=== PATIENT | female | born 1965 | race Caucasian/White ===

== ENCOUNTER 2016-08-27 19:45 | Emergency (ER) | payer BC, OTHER ==
[2016-08-27] MEDS ORDERED: Sodium Chloride 0.9% 10 ML Syringe FLUSH PRN (20:06)
--- NOTE | 2016-08-27 20:13 | EDM.PDOC ---
ED HPI GENERAL MEDICAL PROBLEM - General Chief Complaint: General Stated Complaint: shortness of breath Time Seen by Provider: 08/27/16 20:00 Source of Information: Reports: Patient History Limitations: Reports: No Limitations - History of Present Illness INITIAL COMMENTS - FREE TEXT/NARRATIVE: Patient is a 51-year-old was brought in by her sister for evaluation patient states that today she was at work and felt exhausted maybe heat exhaustion so she went to the nurse they gave her a pack couple of ice packs and send her on her way at this time patient states that she also lost her breath and having a low-grade temperature she also complains of chest pain right-sided radiating to the flank she also complained right lower quadrant tenderness she states is been going on for a couple days but todays when it hurt her worse Duration: Hour(s): Location: Reports: Chest, Abdomen Quality: Reports: Pressure Severity: Moderate Improves with: Reports: Cold Therapy Worsens with: Reports: None Context: Reports: Sick Contact Associated Symptoms: Reports: Nausea/Vomiting, Other (Diarrhea) Right Lower Headache Pain Score (Numeric/FACES): 3 - Related Data Allergies Allergy/AdvReac Type Severity Reaction Status Date / Time No Known Allergies Allergy Verified 08/27/16 20:04 Home Meds: Home Meds Estrogen,Con/M-Progest Acet [Prempro 0.3 MG-1.5 MG] 1 tab PO DAILY PRN 03/16/15 [History] Past Medical History HEENT History: Reports: None. Denies: Allergic Rhinitis, Glaucoma, Hard of Hearing, Impaired Vision, Macular Degeneration Cardiovascular History: Reports: Heart Murmur Respiratory History: Reports: None. Denies: Asthma, COPD, PE Gastrointestinal History: Reports: None. Denies: Chronic Constipation, Chronic Diarrhea, Gastritis, GERD, Hepatitis, Helicobacter Pylori, Pancreatitis Genitourinary History: Reports: None. Denies: Chronic Renal Insuffiency, Renal Calculus, STD, Urinary Incontinence [employer] History: Reports: Dysfunctional Uterine Bleeding, Endometrial Ablation, Fibroids, Spontaneous Musculoskeletal History: Reports: None. Denies: Arthritis, Back Pain, Chronic, Gout, Neck Pain, Chronic, Osteoarthritis, RA, SLE Neurological History: Reports: None. Denies: Concussion, CVA, Headaches, Chronic, Head Trauma, Migraines, Neuropathy, Peripheral, Seizure, TIA, Vertigo Psychiatric History: Reports: None. Denies: Abuse, Victim of, Anxiety, Depression, Suicidal Ideation Endocrine/Metabolic History: Reports: None. Denies: Diabetes, Type I, Diabetes , Type II, Hypothyroidism, IDDM Hematologic History: Reports: None. Denies: Anemia, B12 Deficiency, Blood Transfusion(s), Iron Deficiency Immunologic History: Reports: None. Denies: AIDS, HIV, SLE Oncologic (Cancer) History: Reports: None Dermatologic History: Reports: None. Denies: Eczema, Psoriasis - Infectious Disease History Infectious Disease History: Reports: Chicken Pox - Past Surgical History HEENT Surgical History: Reports: Oral Surgery GI Surgical History: Reports: Hernia, Inguinal Female Surgical History: Reports: Tubal Ligation, Other (See Below) - Past Imaging History Past Imaging History: Reports: Mammogram (10/04/14) Social & Family History - Tobacco Use Smoking Status *Q: Never Smoker Second Hand Smoke Exposure: No - Caffeine Use Caffeine Use: Reports: None. Denies: Coffee, Energy Drinks, Soda, Tea - Alcohol Use Days Per Week of Alcohol Use: 6 (DWI x2 initially in 1995 and then in 2008 M. in no history of abuse or treatment) Number of Drinks Per Day: 8 (Usually beer) Total Drinks Per Week: 48 - Recreational Drug Use Recreational Drug Use: No Drug Use in Last 12 Months: No - Living Situation & Occupation Living situation: Reports: , with Significant Other Occupation: Employed ED ROS GENERAL - Review of Systems Review Of Systems: See Below Constitutional: Reports: Fever, Chills, Diaphoresis HEENT: Reports: Glasses Respiratory: Reports: Shortness of Breath Cardiovascular: Reports: Chest Pain Endocrine: Reports: No Symptoms GI/Abdominal: Reports: Diarrhea, Vomiting Musculoskeletal: Reports: No Symptoms Skin: Reports: No Symptoms Neurological: Reports: No Symptoms Psychiatric: Reports: No Symptoms ED EXAM, GENERAL - Physical Exam Exam: See Below Exam Limited By: No Limitations General Appearance: Alert, WD/WN Ears: Normal External Exam, Normal Canal, Hearing Grossly Normal, Normal TMs Ear Exam: Bilateral Ear: Auricle Normal, Canal Normal, TM normal Nose: Normal Inspection, Normal Mucosa, No Blood Throat/Mouth: Normal Inspection, Normal Lips, Normal Teeth, Normal Gums, Normal Oropharynx, Normal Voice, No Airway Compromise Head: Atraumatic, Normocephalic Neck: Normal Inspection, Supple, Non-Tender, Full Range of Motion Respiratory/Chest: Lungs Clear, Normal Breath Sounds, Decreased Breath Sounds Cardiovascular: Regular Rate, Rhythm, Systolic Murmur GI/Abdominal: Normal Bowel Sounds, Soft, No Distention, No Abnormal Bruit, No Mass (Female) Exam: Deferred Rectal (Female) Exam: Deferred Psychiatric: Normal Affect, Normal Mood Lymphatic: No Adenopathy Course - Vital Signs Last Recorded V/S: Last Vital Signs Temp 100 F 08/27/16 19:56 Pulse 104 H 08/27/16 19:56 Resp 16 08/27/16 19:56 BP 135/91 H 08/27/16 19:56 Pulse Ox 99 08/27/16 19:56 - Orders/Labs/Meds Orders: Active Orders 24 hr Category Date Time Status CXR [Chest 2V] [CR] Stat Exams 08/27/16 20:06 Ordered Sodium Chloride 0.9% @ 150 MLS/HR (1000ml) Med 08/27/16 20:15 Ordered Sodium Chloride 0.9% [Normal Saline] 1,000 ml IV ASDIRECTED Sodium Chloride 0.9% [Saline Flush] Med 08/27/16 20:06 Ordered 10 ml FLUSH ASDIRECTED PRN Saline Lock Insert [OM.PC] Stat Oth 08/27/16 20:06 Ordered Medication Orders Sodium Chloride (Normal Saline) 1,000 mls @ 150 mls/hr IV ASDIRECTED JOSE Last Admin: 08/27/16 20:50 Dose: 150 mls/hr Sodium Chloride (Saline Flush) 10 ml FLUSH ASDIRECTED PRN PRN Reason: Keep Vein Open Labs: Laboratory Tests 08/27/16 08/27/16 08/27/16 Range/Units 20:06 20:06 20:37 WBC 8.7 (4.0-10.2) K/uL RBC 4.15 (3.77-5.09) M/uL Hgb 12.8 (11.7-15.5) g/dL Hct 37.3 (34.0-46.0) % MCV 89.9 (84.0-98.0) fL MCH 30.8 (28.2-33.3) pg MCHC 34.3 (31.7-36.0) g/dL RDW 12.9 (11.2-14.1) % Plt Count 222 (150-350) K/uL Neut % (Auto) 84.0 H (45.0-80.0) % Lymph % (Auto) 9.4 L (10.0-50.0) % [place] % (Auto) 5.4 (2.0-14.0) % Eos % (Auto) 0.7 (0.0-5.0) % Baso % (Auto) 0.5 (0.0-2.0) % Neut # (Auto) 7.29 H (1.40-7.00) K/uL Lymph # (Auto) 0.82 (0.50-3.50) K/uL [place] # (Auto) 0.47 (0.00-1.00) K/uL Eos # (Auto) 0.06 (0.00-0.50) K/uL Baso # (Auto) 0.04 (0.00-0.20) K/uL Sodium 137 (136-145) mmol/L Potassium 3.5 (3.5-5.1) mmol/L Chloride 103 (98-107) mmol/L Carbon Dioxide 22.4 (21.0-32.0) mmol/L BUN 12 (7-18) mg/dL Creatinine 0.72 (0.51-1.17) mg/dL Est Cr Clr Drug Dosing 84.86 mL/min Estimated GFR (MDRD) > 60 mL/min Glucose 102 (74-106) mg/dL Calcium 8.8 (8.5-10.1) mg/dL Specimen Type Urincc Urine Color Light yellow Urine Appearance Clear Urine pH 5.5 (5.0-9.0) Ur Specific [place] <= 1.005 (1.005-1.030) Urine Protein Negative (NEGATIVE) mg/dL Urine Glucose (UA) Negative (NEGATIVE) mg/dL Urine Ketones Negative (NEGATIVE) mg/dL Urine Occult Blood Trace-lysed H (NEGATIVE) Urine Nitrite Negative (NEGATIVE) Urine Bilirubin Negative (NEGATIVE) Urine Urobilinogen 0.2 (0.2-1.0) E.U./dL Ur Leukocyte Esterase Negative (NEGATIVE) Urine RBC 0-5 /HPF Urine WBC 0-5 /HPF Ur Epithelial Cells Rare /LPF Urine Bacteria Rare (NONE TO FEW) /HPF Meds: Medications Generic Name Dose Route Start Last Admin Trade Name Freq PRN Reason Stop Dose Admin Sodium Chloride 1,000 mls @ 150 mls/hr 08/27/16 20:15 08/27/16 20:50 Normal Saline IV 150 mls/hr ASDIRECTED JOSE Administration Sodium Chloride 10 ml 08/27/16 20:06 Saline Flush FLUSH ASDIRECTED PRN Keep Vein Open Departure - Departure Time of Disposition: 22:00 Disposition: Home, Self-Care 01 Preliminary Cause of *Q: Cardiac Arrest Condition: Fair Clinical Impression: Dehydration, mild - Discharge Information Forms: ED Department Discharge Care Plan Goals: Patient will be given 1 L of fluids then sent home she is to take Gatorade at home or water follow-up if symptoms continue - My Orders Last 24 Hours: My Active Orders 08/27/16 20:06 CXR [Chest 2V] [CR] Stat Sodium Chloride 0.9% [Saline Flush] 10 ml FLUSH ASDIRECTED PRN Saline Lock Insert [OM.PC] Stat 08/27/16 20:15 Sodium Chloride 0.9% @ 150 MLS/HR (1000ml) Sodium Chloride 0.9% [Normal Saline] 1,000 ml IV ASDIRECTED - Assessment/Plan Last 24 Hours: My Active Orders 08/27/16 20:06 CXR [Chest 2V] [CR] Stat Sodium Chloride 0.9% [Saline Flush] 10 ml FLUSH ASDIRECTED PRN Saline Lock Insert [OM.PC] Stat 08/27/16 20:15 Sodium Chloride 0.9% @ 150 MLS/HR (1000ml) Sodium Chloride 0.9% [Normal Saline] 1,000 ml IV ASDIRECTED
[2016-08-27] MEDS ORDERED: Sodium Chloride 0.9% 1,000 ML IV SCH (20:15)
[2016-08-27 20:38] LABS: CHLORIDE,CL 103 mmol/L (98-107); SODIUM,NA 137 mmol/L (136-145)
[2016-08-28 08:10] VITALS: BP 131/80
== END 2016-08-27 22:15 | disposition home or self-care (01) ==
LOC: LL.ED 19:45
DX: E86.0 Dehydration (principal)
CPT/HCPCS: 36415; 71020; 80048; 81001; 85025; 96360; 99285; J7030

== ENCOUNTER 2020-02-23 15:00 | Observation (INO) | payer BC ==
--- NOTE | 2020-02-23 15:15 | EDM.PDOC ---
ED HPI GENERAL MEDICAL PROBLEM - General Chief Complaint: General Stated Complaint: R arm pain Time Seen by Provider: 02/23/20 15:10 Source of Information: Reports: Patient, EMS, EMS Notes Reviewed, Family (Son, Sharath. Yolanda), Old Records ([facility] chart/EMR) History Limitations: Reports: No Limitations - History of Present Illness INITIAL COMMENTS - FREE TEXT/NARRATIVE: The patient was brought to the emergency room via ambulance with EMT accompaniment with 4 baby aspirin chew and swallow given prior to arrival to this facility. Note that the patient had some nonspecific dyspnea at about 11 AM this morning with sudden onset moderate 78/10 left-sided chest pressure with radiation to the left shoulder and left arm, including paresthesias, mild dyspnea, mild nausea, mild dizziness and mild to moderate diaphoresis. The patient was standing at the time of onset of symptoms with no history of fall or injury. Note that patient was given O2 at [facility] with this continued by the power distribution engineer in route to this facility. Chest pain was essentially resolved at time of arrival to this facility with symptoms lasting about 15 minutes and significantly improved with O2 therapy as above. The patient denies any heart flutter, orthostasis, orthopnea, decreased exercise tolerance, or any other anginal-type symptoms. No recent history of abdominal pain, heartburn, emesis, diarrhea, melena, gross hematochezia, or any food intolerance, including fatty foods, etc. with normal bowel movement yesterday. She denies any gross hematuria, colic, or other UTI symptoms. The patient also denies any recent fever, cough, wheezing, known exposure to infection, etc. with the patient currently compliant with CDC guidelines for COVID-19. Onset: Today, Sudden Onset Date: 02/23/20 Onset Time: 14:00 Duration: Resolved Prior to Arrival Location: Reports: Chest, Upper Extremity, Left, Radiates to (As above). Denies: Abdomen, Back, Pelvis, Upper Extremity, Right Quality: Reports: Pressure Severity: Moderate Improves with: Reports: Other (Oxygen therapy as above) Worsens with: Reports: None Associated Symptoms: Reports: Chest Pain, Diaphoresis, Nausea/Vomiting (No emesis), Shortness of Breath. 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 Denies: Allergic Rhinitis, Glaucoma, Hard of Hearing, Macular Degeneration Other HEENT History: Patient wears glasses. Cardiovascular History: Reports: Heart Murmur, Other (See Below). Denies: Afib, Aneurysm, Angina, Arrhythmia, Blood Clots/VTE/DVT, CAD, Cardiomyopathy, Heart Failure, High Cholesterol, Hypertension, [place], PVD, Syncope Other Cardiovascular History: History of intermittent probable functional heart murmur. Respiratory History: Reports: None, Intubation, Previous. Denies: Asthma, Bronchitis, Recurrent, COPD, Intubation, Difficult, PE, Pneumonia, Recurrent, Pneumothorax, Pulmonary Fibrosis Gastrointestinal History: Reports: None. Denies: Celiac Disease, Cholelithiasis, Chronic Constipation, Chronic Diarrhea, Colon Polyp, Diverticulosis, Fatty Liver, Fecal Incontinence, Gastritis, GERD, GI Bleed, Hepatitis, Helicobacter Pylori, Inflammatory Bowel Disease, Irritable Bowel Syndrome, Jaundice, Pancreatitis, PUD Genitourinary History: Reports: None. 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 Denies: Endometriosis : 3 Para: 2 LMP (Approximate): Other (See Below) Other TECHNICAL MANAGER History: Full term without complications during pregnancies or deliveries. Dysfunctional uterine bleeding with uterine fibroids requiring endometrial ablation as below with no menses since that time. First trimester SAB with no procedures required. Multiple benign bilateral ovarian cysts. Musculoskeletal History: Reports: Arthritis, Fracture, Osteoarthritis, Other (See Below). Denies: Back Pain, Chronic, Gout, Neck Pain, Chronic, RA, SLE Other Musculoskeletal History: Chip fracture of the left proximal humeral head on 03/26/2015 with no surgeries required. Neurological History: Reports: None. Denies: Cerebral Aneurysms, Concussion, CVA, Headaches, Chronic, Head Trauma, Migraines, MS, Neuropathy, Peripheral, Parkinson's, Seizure, TIA, Vertigo Psychiatric History: Reports: None. Denies: Abuse, Victim of, Anxiety, Depression, Panic Attack, Psych Hospitalization(s), PTSD, Suicide Attempt, Suicidal Ideation Endocrine/Metabolic History: Reports: Obesity/BMI 30+. Denies: Diabetes, Gestational, Diabetes, Type I, Diabetes, Type II, Diabetes Mellitus, Type 3c, Hypothyroidism, IDDM Hematologic History: Reports: None. Denies: Anemia, B12 Deficiency, Blood Transfusion(s), Iron Deficiency Immunologic History: Reports: None. Denies: AIDS, HIV, SLE Oncologic (Cancer) History: Reports: None. Denies: Basal Cell Carcinoma, Breast, Cervix, Colon, Hodgkin's Lymphoma, Leukemia, Lung, Lymphoma, Malignant Melanoma, Metastatic, Non-Hodgkin's Lymphoma, Ovarian, Squamous Cell Carcinoma, Uterine Dermatologic History: Reports: None. Denies: Eczema, Psoriasis - Infectious Disease History Infectious Disease History: Reports: Chicken Pox. Denies: C-Difficile, Measles, Meningitis, Mononucleosis, MRSA, Mumps, Novel Coronavirus, Pertussis (Whooping Cough), Rheumatic Fever, Rubella, Scarlet Fever, Shingles, TB, VRE - Past Surgical History Head Surgeries/Procedures: Reports: None, Craniotomy HEENT Surgical History: Reports: Oral Surgery, Other (See Below). Denies: Adenoidectomy, Cataract Surgery, Eye Surgery, Laser Surgery, LASIK, Myringotomy w Tube(s), Naso-Sinus Surgery, Tonsillectomy Other HEENT Surgeries/Procedures: Del[place] teeth extraction x4 at age 18 with additional multiple teeth extractions. Cardiovascular Surgical History: Reports: None. Denies: Varicose Respiratory Surgical History: Reports: None. Denies: Thoracentesis GI Surgical History: Reports: Hernia, Inguinal, Other (See Below). Denies: Appendectomy, Cholecystectomy, Colonoscopy, EGD, Hernia, Abdominal, Hernia Repair/Other, Polypectomy Other GI Surgeries/Procedures: Bilateral inguinal hernia repair at age 10. Female Surgical History: Reports: Tubal Ligation, Other (See Below). Denies: Section, D&C, Hysterectomy, Salpingo-Oophorectomy Other Female Surgeries/Procedures: Bilateral tubal ligation December 2012. Endometrial laser ablation in December 2012 with secondary surgical menopause. Endocrine Surgical History: Reports: None. Denies: Thyroid Biopsy Neurological Surgical History: Reports: None. Denies: C-Spine, Discectomy, Intracranial, Laminectomy, Lumbar Spine, Spinal Fusion, Thoracic Spine, Vertebroplasty Musculoskeletal Surgical History: Reports: None. Denies: Arthroscopic Procedure, Carpal Tunnel, Ganglion Cyst, Joint Replacement, ORIF, Shoulder Surgery Oncologic Surgical History: Reports: None Dermatological Surgical History: Reports: None - Past Imaging History Past Imaging History: Reports: CAT Scan (CT scan of the abdomen pelvis with contrast on 07/04/2018.), Mammogram (Last on 06/27/2018.), Ultrasound (Pelvic ultrasound on 06/27/2018, 12/05/2016, and 11/20/2012.) Social & Family History - Family History HEENT: Reports: None. Denies: Glaucoma, Macular Degeneration, Retinal Detachment Cardiac: Reports: Hypertension, Other (See Below). Denies: Afib, Aneurysm, Arrhythmia, Blood Clots/VTE/DVT, CAD, Heart Failure, Heart Murmur, Heart Valve Replacement, High Cholesterol, [place], PVD/COD, Syncope Other Cardiac Family History: Father with hypertension. Respiratory: Reports: COPD, Sleep Apnea, Other (See Below). Denies: Asthma, PE, Pneumothorax Other Respiratory Family Hisory: Father with history of COPD and tobacco use. Brother with sleep apnea currently using CPAP. GI: Reports: Cholelithiasis, Other (See Below). Denies: Bowel Obstruction, Celiac Disease, Chronic Constipation, Chronic Diarrhea, Colon Polyps, Diverticulosis, GERD, GI bleed, Hepatitis, Irritable Bowel Syndrome, Pancreatitis, PUD Other GI Family History: Sister with cholelithiasis. : Reports: Renal Disease/Insufficiency, Other (See Below). Denies: Dialysis, Renal Calculus Other Family History: Son with acute renal failure at about age 19 likely secondary to dehydration with no dialysis, etc. required. OBGYN: Reports: Endometriosis, Other (See Below). Denies: Dysfunctional uterine bleeding, Fibroids, Recurrent Spontaneous Other OBGYN Family History: Sister with hysterectomy for unknown reason at age 28, however she did have endometriosis with another sister also with endometriosis. Musculoskeletal: Reports: Arthritis, Osteoarthritis, Other (See Below). Denies: Gout, RA, SLE Other Musculoskeletal Family History: Maternal aunt with osteoarthritis. Neurological: Reports: Alzheimers Disease, Dementia, Other (See Below). Denies: Cerebral Aneurysms, CVA, Migraines, MS, Parkinson's, Seizure, TIA Other Neurological Family History: Paternal grandfather with organic brain syndrome/fatal Alzheimer's disease in his 70s. Psychiatric: Reports: ADD, ADHD, Anxiety, Depression, Other (See Below). Denies: Abuse, Victim of, Psych Hospitalization(s), PTSD, Suicide Attempt Other Psychiatric Family History: Son with ADHD, anxiety depression disorder, and previous suicidal ideation, including mostly gesture reactions, without true attempt or psychiatric hospitalization. Endocrine/Metabolic: Reports: Diabetes, type II, Other (See Below). Denies: Diabetes, Gestational, Diabetes, Type I, Diabetes Mellitus, Type 3c, Hypothyroidism, IDDM Other Endocrine/Metabolic Family History: AODM in brother and sister. Hematologic: Reports: None. Denies: Anemia, SLE Immunologic: Reports: None. Denies: AIDS, HIV, SLE Dermatologic: Reports: None. Denies: Eczema, Psoriasis Oncologic: Reports: Other (See Below). Denies: Breast, Colon, Lymphoma, Non-Hodgkin's Lymphoma, Ovarian, Skin, Uterine Other Oncologic Family History: Brother with testicular cancer at age 19. - Tobacco Use Tobacco Use Status *Q: Never Tobacco User Tobacco Use Within Last Twelve Months: No Used Tobacco, but Quit: No Smoking Cessation Information Provided To Patient: No Second Hand Smoke Exposure: No Second Hand Smoke Education Provided: No - Caffeine Use Caffeine Use: Reports: Soda (1 soda per month.). Denies: Coffee, Energy Drinks, Tea - Alcohol Use Alcohol Use History: Yes Days Per Week of Alcohol Use: 4 Number of Drinks Per Day: 8 Number of Drinks Per Day Comment: Usually beer. DWI x2 initially 1995 and then in 2008. No history of alcohol abuse with treatment. Total Drinks Per Week: 32 Date of Last Drink: 02/22/20 Alcohol Use in Last Twelve Months: Yes Alcohol Use Frequency: Binges - Recreational Drug Use Recreational Drug Use: No Drug Use in Last 12 Months: No Recreational Drug Type: Denies: Amphetamines (Speed), Cocaine, Heroin, Inhalants (Glues, Solvents, Aerosols), LSD (Acid), Marijuana/Hashish, Methamphetamine, Morphine, Oxycodone - Living Situation & Occupation Living situation: Reports: (2005, 2 children), Alone Occupation: Employed ([employer]. 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 ED EXAM, GENERAL - Physical Exam Exam: See Below Exam Limited By: No Limitations General Appearance: Alert, WD/WN, No Apparent Distress, Anxious (Mild) Eye Exam: Bilateral Eye: EOMI, Normal Inspection (No nystagmus or vertigo. Patient is wearing glasses.), PERRL Ears: Normal External Exam, Normal Canal, Hearing Grossly Normal, Normal TMs Nose: Normal Inspection, Normal Mucosa, No Blood Throat/Mouth: Normal Inspection, Normal Lips, Normal Teeth (Occasional missing teeth with no acute infection), Normal Gums, Normal Oropharynx, Normal Voice, No Airway Compromise. No: Dysphagia, Perioral Cyanosis Head: Atraumatic, Normocephalic. No: Facial Swelling, Facial Tenderness, Sinus Tenderness Neck: Normal Inspection, Supple, Non-Tender, Full Range of Motion. No: Carotid Bruit, Lymphadenopathy (L), Lymphadenopathy (R), Thyromegaly Respiratory/Chest: No Respiratory Distress, Lungs Clear, Normal Breath Sounds, No Accessory Muscle Use, Chest Non-Tender. No: Pleural Rub, Retractions Cardiovascular: Normal Peripheral Pulses, Regular Rate, Rhythm, No Edema, No Gallop, No JVD, No Murmur, No Rub. No: Gallop/S3, Gallop/S4, Friction Rub Peripheral Pulses: 2+: Radial (L), Radial (R), Dorsalis Pedis (L), Dorsalis Pedis (R) GI/Abdominal: Normal Bowel Sounds, Soft, Non-Tender, No Organomegaly, No Distention, No Abnormal Bruit, No Mass, Pelvis Stable, Other (Obese). No: Guarding (Female) Exam: Deferred Rectal (Female) Exam: Deferred Back Exam: Normal Inspection, Full Range of Motion. No: CVA Tenderness (L), CVA Tenderness (R), Muscle Spasm Extremities: Normal Inspection, Normal Range of Motion, Non-Tender, No Pedal Edema, Normal Capillary Refill. No: Mayda's Sign Neurological: Alert, Oriented, CN II-XII Intact, Normal Cognition, Normal Gait, Normal Reflexes (Negative Babinski's), No Motor/Sensory Deficits Psychiatric: Anxious (Mild), Depressed Mood (Borderline) Skin Exam: Warm, Dry, Intact, Normal Color, No Rash, Stud(s) (Auricular). No: Diaphoretic, Ecchymosis, Petechiae, Wound/Incision Lymphatic: No Adenopathy #1 Interpretation EKG Date: 02/23/20 Time: 15:10 Rhythm: NSR (Mild sinus arrhythmia) Rate (Beats/Min): 87 Elizabeth: Normal P-Wave: Present QRS: Normal (0.09 seconds with somewhat low voltage and mild repolarization changes) ST-T: Normal (T wave inversion in leads III and V1) QT: Normal AL/PQ Interval: 0.14 seconds representing a borderline short AL interval with no delta waves noted. Extreme poor R wave progression in the anterior leads. Comparison: NA - No Prior EKG EKG Interpretation Comments: 1. No acute ischemic changes 2. Borderline short AL interval 3. Repolarization changes Course - Vital Signs Last Recorded V/S: Last Vital Signs Temp 36.1 C 02/23/20 15:00 Pulse 87 02/23/20 15:36 Resp 19 02/23/20 15:16 BP 130/92 H 02/23/20 15:36 Pulse Ox 100 02/23/20 15:16 Vital Signs - 24 hr 02/23/20 02/23/20 02/23/20 15:00 15:16 15:36 Temperature [ 36.1 C Temporal] Pulse, 87 Peripheral Pulse, 85 86 Peripheral [ Pulse Oximetry] Respiratory 16 19 Rate Blood Pressure 130/92 H Blood Pressure 151/99 H 139/83 [Right Upper Arm] O2 Sat by Pulse 100 100 Oximetry - Orders/Labs/Meds Orders: Active Orders 24 hr Category Date Time Status Cardiac Monitoring [RC] . DIRECTED Care 02/23/20 15:16 Active EKG Documentation Completion [RC] ASDIRECTED Care 02/23/20 15:10 Active Oxygen Therapy, ED [RC] PRN Care 02/23/20 15:16 Active Peripheral IV Care [RC] . DIRECTED Care 02/23/20 15:16 Active Pulse Oximetry [RC] CONTINUOUS Care 02/23/20 15:16 Active Up With Assistance [RC] PFP Care 02/23/20 15:16 Active Vital Signs [RC] PFP Care 02/23/20 15:16 Active Nothing per Oral Now Diet [DIET] Diet 02/23/20 Breakfast Active Chest 1V Frontal [CR] Stat Exams 02/23/20 15:16 Ordered Sodium Chloride 0.9% [Saline Flush] Med 02/23/20 15:15 Active 10 ml FLUSH ASDIRECTED PRN Obtain Past Medical Record [OM.PC] Urgent Oth 02/23/20 15:16 Active Peripheral IV Insertion Adult [OM.PC] Stat Oth 02/23/20 15:16 Ordered Resuscitation Status Stat Resus Stat 02/23/20 15:15 Ordered Medication Orders Sodium Chloride (Saline Flush) 10 ml FLUSH ASDIRECTED PRN PRN Reason: Keep Vein Open Last Admin: 02/23/20 15:24 Dose: 10 ml Documented by: DIONNA Labs: Laboratory Tests 02/23/20 02/23/20 02/23/20 Range/Units 15:16 15:16 15:16 WBC 8.7 (4.0-10.2) K/uL RBC 3.89 (3.77-5.09) M/uL Hgb 12.3 (11.7-15.5) g/dL Hct 35.9 (34.0-46.0) % MCV 92.3 (84.0-98.0) fL MCH 31.6 (28.2-33.3) pg MCHC 34.3 (31.7-36.0) g/dL RDW 13.2 (11.2-14.1) % Plt Count 258 (150-350) K/uL Neut % (Auto) 44.3 L (45.0-80.0) % Lymph % (Auto) 47.2 (10.0-50.0) % [place] % (Auto) 6.8 (2.0-14.0) % Eos % (Auto) 1.1 (0.0-5.0) % Baso % (Auto) 0.6 (0.0-2.0) % Neut # (Auto) 3.86 (1.40-7.00) K/uL Lymph # (Auto) 4.11 H (0.50-3.50) K/uL [place] # (Auto) 0.59 (0.00-1.00) K/uL Eos # (Auto) 0.10 (0.00-0.50) K/uL Baso # (Auto) 0.05 (0.00-0.20) K/uL PT 10.3 (9.5-12.0) SEC INR 1.0 APTT 26.5 (24.5-32.8) SEC D-Dimer, Quantitative < 100 (0-400) ng/mL Sodium (136-145) mmol/L Potassium (3.5-5.1) mmol/L Chloride (98-107) mmol/L Carbon Dioxide (21.0-32.0) mmol/L BUN (7-18) mg/dL Creatinine (0.51-1.17) mg/dL Est Cr Clr Drug Dosing Estimated GFR (MDRD) mL/min Glucose (74-106) mg/dL Lactic Acid (0.4-2.0) mmol/L Uric Acid (2.6-7.2) mg/dL Calcium (8.5-10.1) mg/dL Magnesium (1.8-2.4) mg/dL Total Bilirubin (0.2-1.0) mg/dL AST (15-37) U/L ALT (12-78) U/L Alkaline Phosphatase (46-116) IU/L Creatine Kinase (26-308) U/L Creatine Kinase Index (0.0-2.5) % CK-MB (CK-2) (0.00-3.60) ng/mL Troponin I (0.000-0.056) ng/mL NT-Pro-B Natriuret Pep (0-125) pg/mL Total Protein (6.4-8.2) g/dL Albumin (3.4-5.0) g/dL TSH, Ultra Sensitive (0.358-3.740) mIU/mL 02/23/20 02/23/20 Range/Units 15:16 15:16 WBC (4.0-10.2) K/uL RBC (3.77-5.09) M/uL Hgb (11.7-15.5) g/dL Hct (34.0-46.0) % MCV (84.0-98.0) fL MCH (28.2-33.3) pg MCHC (31.7-36.0) g/dL RDW (11.2-14.1) % Plt Count (150-350) K/uL Neut % (Auto) (45.0-80.0) % Lymph % (Auto) (10.0-50.0) % [place] % (Auto) (2.0-14.0) % Eos % (Auto) (0.0-5.0) % Baso % (Auto) (0.0-2.0) % Neut # (Auto) (1.40-7.00) K/uL Lymph # (Auto) (0.50-3.50) K/uL [place] # (Auto) (0.00-1.00) K/uL Eos # (Auto) (0.00-0.50) K/uL Baso # (Auto) (0.00-0.20) K/uL PT (9.5-12.0) SEC INR APTT (24.5-32.8) SEC D-Dimer, Quantitative (0-400) ng/mL Sodium 139 (136-145) mmol/L Potassium 3.6 (3.5-5.1) mmol/L Chloride 104 (98-107) mmol/L Carbon Dioxide 24.1 (21.0-32.0) mmol/L BUN 15 (7-18) mg/dL Creatinine 0.79 (0.51-1.17) mg/dL Est Cr Clr Drug Dosing TNP Estimated GFR (MDRD) > 60 mL/min Glucose 91 (74-106) mg/dL Lactic Acid 0.9 (0.4-2.0) mmol/L Uric Acid 6.2 (2.6-7.2) mg/dL Calcium 9.1 (8.5-10.1) mg/dL Magnesium 2.0 (1.8-2.4) mg/dL Total Bilirubin 0.4 (0.2-1.0) mg/dL AST 23 (15-37) U/L ALT 31 (12-78) U/L Alkaline Phosphatase 56 (46-116) IU/L Creatine Kinase 196 (26-308) U/L Creatine Kinase Index 2.2 (0.0-2.5) % CK-MB (CK-2) 4.40 H* (0.00-3.60) ng/mL Troponin I 0.000 (0.000-0.056) ng/mL NT-Pro-B Natriuret Pep 76 (0-125) pg/mL Total Protein 7.3 (6.4-8.2) g/dL Albumin 4.1 (3.4-5.0) g/dL TSH, Ultra Sensitive 2.059 (0.358-3.740) mIU/mL Meds: Medications Generic Name Dose Route Start Last Admin Trade Name Freq PRN Reason Stop Dose Admin Sodium Chloride 10 ml 02/23/20 15:15 02/23/20 15:24 Saline Flush FLUSH 10 ml ASDIRECTED PRN Administration Keep Vein Open Discontinued Medications Generic Name Dose Route Start Last Admin Trade Name Freq PRN Reason Stop Dose Admin Famotidine 40 mg 02/23/20 15:15 02/23/20 15:21 Pepcid IVPUSH 02/23/20 15:16 40 mg ONETIME ONE Administration Metoprolol Tartrate 2.5 mg 02/23/20 15:32 02/23/20 15:36 Lopressor IVPUSH 02/23/20 15:33 2.5 mg ONETIME ONE Administration Ticagrelor 180 mg 02/23/20 15:15 02/23/20 15:21 Brilinta PO 02/23/20 15:16 180 mg ONETIME ONE Administration - Radiology Interpretation Free Text/Narrative:: court monitor showed normal sinus rhythm with heart rate in the 70s to 90s with no ectopy or arrhythmia. Chest x-ray, portable, showed mild prominence of the proximal aortic arch without evidence of aneurysm, cardiomegaly, CHF, pulmonary infiltrates, pneumothorax, etc. Borderline pulmonary obstructive disease noted. Departure - Departure Time of Disposition: 16:15 Disposition: Refer to Observation Condition: Good Clinical Impression: Chest pain, Elevated blood pressure reading, Osteoarthritis, Obesity (BMI 30-39.9) - Discharge Information *PRESCRIPTION DRUG MONITORING PROGRAM REVIEWED*: Not Applicable *COPY OF PRESCRIPTION DRUG MONITORING REPORT IN PATIENT DILSHAD: Not Applicable Referrals: Shana Rednon PA [Primary Care Provider] - Forms: ED Department Discharge Care Plan Goals: See plan Sepsis Event Note (ED) - Focused Exam Vital Signs: Vital Signs Temp Pulse Pulse Resp BP BP Pulse Ox 02/23/20 15:36 87 130/92 H 02/23/20 15:16 86 19 139/83 100 02/23/20 15:00 36.1 C 85 16 151/99 H 100 - Problem List & Annotations (1) Chest pain SNOMED Code(s): 30228105 Code(s): R07.9 - CHEST PAIN, UNSPECIFIED Status: Acute Priority: High Onset Date: 02/23/20 Annotation/Comment:: Chest pain protocol initiated immediately upon patient's arrival to the emergency room. Note that ASA was given prior to arrival by the power distribution engineer. Chest pain completely resolved prior to arrival and did not occur during her emergency room care. Initiate standard rule out [place] orders. Cardiology consultation depending on her clinical course. Cardiolite stress test in this facility should be conducted next week with 50% maximum exercise restriction, no climbing, fall precautions, etc. until her cardiac status has been determined. Note that high-dose IV Pepcid was given as GI prophylaxis. Mild CK-MB elevation however other cardiac enzymes were normal, including D-dimer, troponin I, etc. Qualifiers: Chest pain type: precordial pain Qualified Code(s): R07.2 - Precordial pain (2) Elevated blood pressure reading SNOMED Code(s): 43427207 Code(s): R03.0 - ELEVATED BLOOD-PRESSURE READING, W/O DIAGNOSIS OF HTN Status: Acute Priority: High Onset Date: 02/23/20 Annotation/Comment:: Note elevated blood pressures initially in the emergency room. Low-dose IV Lopressor was given for blood pressure control and asked cardiac prophylaxis. No previous history of hypertension. Continue to observe blood pressures closely both during this hospitalization and on an outpatient basis. (3) Obesity (BMI 30-39.9) SNOMED Code(s): 072996895, 996116586 Code(s): E66.9 - OBESITY, UNSPECIFIED Status: Chronic Priority: High Annotation/Comment:: Weight loss in moderation is advisable. Fasting lipid profile and glycosylated hemoglobin to be conducted in the a.m. (4) Osteoarthritis SNOMED Code(s): 942859975 Code(s): M19.90 - UNSPECIFIED OSTEOARTHRITIS, UNSPECIFIED SITE Status: Chronic Priority: Medium Annotation/Comment:: Stable by history. Qualifiers: Osteoarthritis location: multiple joints Osteoarthritis type: primary Qualified Code(s): M89.49 - Other hypertrophic osteoarthropathy, multiple sites - Problem List Review Problem List Initiated/Reviewed/Updated: Yes - My Orders Last 24 Hours: My Active Orders 02/23/20 Breakfast Nothing per Oral Now Diet [DIET] 02/23/20 15:10 EKG Documentation Completion [RC] ASDIRECTED 02/23/20 15:15 Sodium Chloride 0.9% [Saline Flush] 10 ml FLUSH ASDIRECTED PRN Resuscitation Status Stat 02/23/20 15:16 Cardiac Monitoring [RC] . DIRECTED Oxygen Therapy, ED [RC] PRN Peripheral IV Care [RC] . DIRECTED Pulse Oximetry [RC] CONTINUOUS Up With Assistance [RC] PFP Vital Signs [RC] PFP Chest 1V Frontal [CR] Stat Obtain Past Medical Record [OM.PC] Urgent Peripheral IV Insertion Adult [OM.PC] Stat - Assessment/Plan Last 24 Hours: My Active Orders 02/23/20 Breakfast Nothing per Oral Now Diet [DIET] 02/23/20 15:10 EKG Documentation Completion [RC] ASDIRECTED 02/23/20 15:15 Sodium Chloride 0.9% [Saline Flush] 10 ml FLUSH ASDIRECTED PRN Resuscitation Status Stat 02/23/20 15:16 Cardiac Monitoring [RC] . DIRECTED Oxygen Therapy, ED [RC] PRN Peripheral IV Care [RC] . DIRECTED Pulse Oximetry [RC] CONTINUOUS Up With Assistance [RC] PFP Vital Signs [RC] PFP Chest 1V Frontal [CR] Stat Obtain Past Medical Record [OM.PC] Urgent Peripheral IV Insertion Adult [OM.PC] Stat Assessment:: As above Plan: As above. Extensive precautions were given to the patient and her family, who are in agreement with the treatment plan. The patient's condition is stable enough for observation status and general supervision. Ngozi han physician assumes care in the a.m.
[2020-02-23] MEDS: Famotidine 20 MG/2 ML SDV IVPUSH ONE (15:21)
[2020-02-23] MEDS: Ticagrelor 90 MG Tab PO ONE (15:21)
[2020-02-23] MEDS: Sodium Chloride 0.9% 10 ML Syringe FLUSH PRN (15:24)
[2020-02-23] MEDS: Metoprolol Tartrate 5 MG/5 ML SDV IVPUSH ONE (15:36)
[2020-02-23 15:37] LABS: PTT,PARTIAL THROMBOPLSTIN TIME 26.5 SEC (24.5-32.8)
[2020-02-23 15:47] LABS: CHLORIDE,CL 104 mmol/L (98-107); SODIUM,NA 139 mmol/L (136-145)
[2020-02-23] MEDS ORDERED: Sodium Chloride 0.9% 10 ML Syringe FLUSH PRN (17:04)
[2020-02-23] MEDS ORDERED: Acetaminophen 325 MG Tab PO PRN (17:04)
[2020-02-23] MEDS ORDERED: Temazepam 15 MG Cap PO PRN (17:04)
[2020-02-23] MEDS: Metoprolol Succinate 25 MG Tab.ER PO SCH (17:49)
[2020-02-23] MEDS: Enoxaparin 60 MG/0.6 ML Syringe SUBCUT SCH (17:49)
[2020-02-23] MEDS ORDERED: FLU Vacc QS2020-21 36MOS UP/PF 60 MCG/0.5 ML Syringe IM ONE (19:30)
[2020-02-24 08:05] LABS: HEMOGLOBIN A1C 5.1 % (4.3-5.7)
[2020-02-24 08:24] LABS: CHLORIDE,CL 107 mmol/L (98-107); SODIUM,NA 142 mmol/L (136-145)
[2020-02-24 08:29] VITALS: BP 127/79; PULSE 58
--- NOTE | 2020-02-24 09:39 | PCM.DCSUM1 ---
Discharge Summary - Hospital Course HPI Initial Comments: Pt admitted after being seen in ER for chest pain Pt without pain currently Workup negative Diagnosis: Stroke: No - Discharge Data Discharge Date: 02/24/20 Discharge Disposition: Home, Self-Care 01 Condition: Good - Referral to Home Health Primary Care Physician: TOMASA Rodríguez - Discharge Diagnosis/Problem(s) (1) Chest pain SNOMED Code(s): 71094497 ICD Code: R07.9 - CHEST PAIN, UNSPECIFIED Status: Acute Priority: High Current Visit: No Onset Date: 02/23/20 Problem Details: Chest pain protocol initiated immediately upon patient's arrival to the emergency room. Note that ASA was given prior to arrival by the wireless sales manager. Chest pain completely resolved prior to arrival and did not occur during her emergency room care. Initiate standard rule out [place] orders. Cardiology consultation depending on her clinical course. Cardiolite stress test in this facility should be conducted next week with 50% maximum exercise restriction, no climbing, fall precautions, etc. until her cardiac status has been determined. Note that high-dose IV Pepcid was given as GI prophylaxis. Mild CK-MB elevation however other cardiac enzymes were normal, including D-dimer, troponin I, etc. Qualifiers: Chest pain type: precordial pain Qualified Code(s): R07.2 - Precordial pain - Patient Instructions Diet: Regular Diet as Tolerated Activity: As Tolerated Notify Provider of: Increased Pain - Discharge Plan *PRESCRIPTION DRUG MONITORING PROGRAM REVIEWED*: Not Applicable *COPY OF PRESCRIPTION DRUG MONITORING REPORT IN PATIENT DILSHAD: Not Applicable Home Medications: Home Meds Multivitamin [One-Daily Multi-Vitamin] 1 each PO DAILY 02/23/20 [History] Mv-Mn/C/Glutamin/Lysin/[id number] [Airborne Gummies] 1 each PO DAILY 02/23/20 [History] Naproxen Sodium [Aleve] 220 mg PO TID PRN 02/23/20 [History] Forms: ED Department Discharge Referrals: Shana Rendon PA [Primary Care Provider] - - Discharge Summary/Plan Comment DC Time >30 min.: No Discharge Summary/Plan Comment: To clinic to schedule cardiac stress test - General Info Date of Service: 02/24/20 Functional Status: Reports: Pain Controlled - Review of Systems General: Reports: No Symptoms HEENT: Reports: No Symptoms Pulmonary: Reports: No Symptoms Cardiovascular: Reports: No Symptoms Gastrointestinal: Reports: No Symptoms Musculoskeletal: Reports: No Symptoms - Patient Data Vitals - Most Recent: Last Vital Signs Temp 98.0 F 02/24/20 08:00 Pulse 58 L 02/24/20 08:00 Resp 14 02/24/20 08:00 BP 127/79 02/24/20 08:00 Pulse Ox 100 02/24/20 08:00 Weight - Most Recent: 197 lb 4.8 oz I&O - Last 24 hours: Intake & Output 02/23/20 02/24/20 02/24/20 18:59 02:59 10:59 Intake Total 510 Output Total 800 Balance -290 Lab Results - Last 24 hrs: Laboratory Results - last 24 hr 02/23/20 02/23/20 02/23/20 Range/Units 15:16 15:16 15:16 WBC 8.7 (4.0-10.2) K/uL RBC 3.89 (3.77-5.09) M/uL Hgb 12.3 (11.7-15.5) g/dL Hct 35.9 (34.0-46.0) % MCV 92.3 (84.0-98.0) fL MCH 31.6 (28.2-33.3) pg MCHC 34.3 (31.7-36.0) g/dL RDW 13.2 (11.2-14.1) % Plt Count 258 (150-350) K/uL Neut % (Auto) 44.3 L (45.0-80.0) % Lymph % (Auto) 47.2 (10.0-50.0) % [place] % (Auto) 6.8 (2.0-14.0) % Eos % (Auto) 1.1 (0.0-5.0) % Baso % (Auto) 0.6 (0.0-2.0) % Neut # (Auto) 3.86 (1.40-7.00) K/uL Lymph # (Auto) 4.11 H (0.50-3.50) K/uL [place] # (Auto) 0.59 (0.00-1.00) K/uL Eos # (Auto) 0.10 (0.00-0.50) K/uL Baso # (Auto) 0.05 (0.00-0.20) K/uL PT 10.3 (9.5-12.0) SEC INR 1.0 APTT 26.5 (24.5-32.8) SEC D-Dimer, Quantitative < 100 (0-400) ng/mL Sodium (136-145) mmol/L Potassium (3.5-5.1) mmol/L Chloride (98-107) mmol/L Carbon Dioxide (21.0-32.0) mmol/L BUN (7-18) mg/dL Creatinine (0.51-1.17) mg/dL Est Cr Clr Drug Dosing Estimated GFR (MDRD) mL/min Glucose (74-106) mg/dL Hemoglobin A1c (4.3-5.7) % Lactic Acid (0.4-2.0) mmol/L Uric Acid (2.6-7.2) mg/dL Calcium (8.5-10.1) mg/dL Magnesium (1.8-2.4) mg/dL Total Bilirubin (0.2-1.0) mg/dL AST (15-37) U/L ALT (12-78) U/L Alkaline Phosphatase (46-116) IU/L Creatine Kinase (26-308) U/L Creatine Kinase Index (0.0-2.5) % CK-MB (CK-2) (0.00-3.60) ng/mL Troponin I (0.000-0.056) ng/mL NT-Pro-B Natriuret Pep (0-125) pg/mL Total Protein (6.4-8.2) g/dL Albumin (3.4-5.0) g/dL Triglycerides (30-150) mg/dL Cholesterol (100-200) mg/dL LDL Cholesterol, Calc (0-100) mg/dL HDL Cholesterol (40-60) mg/dL TSH, Ultra Sensitive (0.358-3.740) mIU/mL 02/23/20 02/23/20 02/23/20 Range/Units 15:16 15:16 20:35 WBC (4.0-10.2) K/uL RBC (3.77-5.09) M/uL Hgb (11.7-15.5) g/dL Hct (34.0-46.0) % MCV (84.0-98.0) fL MCH (28.2-33.3) pg MCHC (31.7-36.0) g/dL RDW (11.2-14.1) % Plt Count (150-350) K/uL Neut % (Auto) (45.0-80.0) % Lymph % (Auto) (10.0-50.0) % [place] % (Auto) (2.0-14.0) % Eos % (Auto) (0.0-5.0) % Baso % (Auto) (0.0-2.0) % Neut # (Auto) (1.40-7.00) K/uL Lymph # (Auto) (0.50-3.50) K/uL [place] # (Auto) (0.00-1.00) K/uL Eos # (Auto) (0.00-0.50) K/uL Baso # (Auto) (0.00-0.20) K/uL PT (9.5-12.0) SEC INR APTT (24.5-32.8) SEC D-Dimer, Quantitative (0-400) ng/mL Sodium 139 (136-145) mmol/L Potassium 3.6 (3.5-5.1) mmol/L Chloride 104 (98-107) mmol/L Carbon Dioxide 24.1 (21.0-32.0) mmol/L BUN 15 (7-18) mg/dL Creatinine 0.79 (0.51-1.17) mg/dL Est Cr Clr Drug Dosing TNP Estimated GFR (MDRD) > 60 mL/min Glucose 91 (74-106) mg/dL Hemoglobin A1c (4.3-5.7) % Lactic Acid 0.9 (0.4-2.0) mmol/L Uric Acid 6.2 (2.6-7.2) mg/dL Calcium 9.1 (8.5-10.1) mg/dL Magnesium 2.0 (1.8-2.4) mg/dL Total Bilirubin 0.4 (0.2-1.0) mg/dL AST 23 (15-37) U/L ALT 31 (12-78) U/L Alkaline Phosphatase 56 (46-116) IU/L Creatine Kinase 196 213 (26-308) U/L Creatine Kinase Index 2.2 1.8 (0.0-2.5) % CK-MB (CK-2) 4.40 H* 3.90 H (0.00-3.60) ng/mL Troponin I 0.000 0.000 (0.000-0.056) ng/mL NT-Pro-B Natriuret Pep 76 (0-125) pg/mL Total Protein 7.3 (6.4-8.2) g/dL Albumin 4.1 (3.4-5.0) g/dL Triglycerides (30-150) mg/dL Cholesterol (100-200) mg/dL LDL Cholesterol, Calc (0-100) mg/dL HDL Cholesterol (40-60) mg/dL TSH, Ultra Sensitive 2.059 (0.358-3.740) mIU/mL 02/24/20 02/24/20 02/24/20 Range/Units 07:38 07:38 07:38 WBC 6.2 (4.0-10.2) K/uL RBC 3.90 (3.77-5.09) M/uL Hgb 12.0 (11.7-15.5) g/dL Hct 36.4 (34.0-46.0) % MCV 93.3 (84.0-98.0) fL MCH 30.8 (28.2-33.3) pg MCHC 33.0 (31.7-36.0) g/dL RDW 13.1 (11.2-14.1) % Plt Count 227 (150-350) K/uL Neut % (Auto) 39.6 L (45.0-80.0) % Lymph % (Auto) 48.5 (10.0-50.0) % [place] % (Auto) 8.8 (2.0-14.0) % Eos % (Auto) 2.6 (0.0-5.0) % Baso % (Auto) 0.5 (0.0-2.0) % Neut # (Auto) 2.44 (1.40-7.00) K/uL Lymph # (Auto) 2.99 (0.50-3.50) K/uL [place] # (Auto) 0.54 (0.00-1.00) K/uL Eos # (Auto) 0.16 (0.00-0.50) K/uL Baso # (Auto) 0.03 (0.00-0.20) K/uL PT (9.5-12.0) SEC INR APTT (24.5-32.8) SEC D-Dimer, Quantitative (0-400) ng/mL Sodium 142 (136-145) mmol/L Potassium 3.8 (3.5-5.1) mmol/L Chloride 107 (98-107) mmol/L Carbon Dioxide 24.6 (21.0-32.0) mmol/L BUN 15 (7-18) mg/dL Creatinine 0.84 (0.51-1.17) mg/dL Est Cr Clr Drug Dosing 68.09 Estimated GFR (MDRD) > 60 mL/min Glucose 90 (74-106) mg/dL Hemoglobin A1c 5.1 (4.3-5.7) % Lactic Acid (0.4-2.0) mmol/L Uric Acid (2.6-7.2) mg/dL Calcium 8.9 (8.5-10.1) mg/dL Magnesium (1.8-2.4) mg/dL Total Bilirubin 0.6 (0.2-1.0) mg/dL AST 20 (15-37) U/L ALT 31 (12-78) U/L Alkaline Phosphatase 44 L (46-116) IU/L Creatine Kinase 152 (26-308) U/L Creatine Kinase Index 1.7 (0.0-2.5) % CK-MB (CK-2) 2.60 (0.00-3.60) ng/mL Troponin I 0.000 (0.000-0.056) ng/mL NT-Pro-B Natriuret Pep (0-125) pg/mL Total Protein 6.7 (6.4-8.2) g/dL Albumin 3.4 (3.4-5.0) g/dL Triglycerides 86 (30-150) mg/dL Cholesterol 199 (100-200) mg/dL LDL Cholesterol, Calc 70 (0-100) mg/dL HDL Cholesterol 112 H (40-60) mg/dL TSH, Ultra Sensitive (0.358-3.740) mIU/mL Med Orders - Current: Current Medications Acetaminophen (Tylenol) 650 mg PO Q4H PRN PRN Reason: Pain Enoxaparin Sodium (Lovenox) 60 mg SUBCUT Q24H [facility] Last Admin: 02/23/20 17:49 Dose: 60 mg Documented by: Metoprolol Succinate (Toprol Xl) 25 mg PO QPM [facility] Last Admin: 02/23/20 17:49 Dose: 25 mg Documented by: Sodium Chloride (Saline Flush) 10 ml FLUSH ASDIRECTED PRN PRN Reason: Keep Vein Open Last Admin: 02/23/20 15:24 Dose: 10 ml Documented by: Sodium Chloride (Saline Flush) 10 ml FLUSH Q12HR PRN PRN Reason: Keep Vein Open Temazepam (Restoril) 15 mg PO BEDTIME PRN PRN Reason: Insomnia Discontinued Medications Famotidine (Pepcid) 40 mg IVPUSH ONETIME ONE Stop: 02/23/20 15:16 Last Admin: 02/23/20 15:21 Dose: 40 mg Documented by: Influenza Virus Vaccine (Pharmacy To Dose - Influenza Vaccine) 1 each IM ONETIME ONE Stop: 02/24/20 08:01 Influenza Virus Vaccine (Afluria Quad 2019- (3yr Up)) 60 mcg IM .ONCE ONE Stop: 02/23/20 19:31 Metoprolol Tartrate (Lopressor) 2.5 mg IVPUSH ONETIME ONE Stop: 02/23/20 15:33 Last Admin: 02/23/20 15:36 Dose: 2.5 mg Documented by: Ticagrelor (Brilinta) 180 mg PO ONETIME ONE Stop: 02/23/20 15:16 Last Admin: 02/23/20 15:21 Dose: 180 mg Documented by: - Exam Lungs: Reports: Clear to Auscultation Cardiovascular: Reports: Regular Rate
== END 2020-02-24 10:25 | disposition home or self-care (01) ==
LOC: LL.ED 15:00 → LL.MS 16:52 → UNDOADMOB 16:52
PROVIDERS: ADMIT Family Medicine; ATTEND Family Medicine
DX: R07.9 Chest pain, unspecified (principal); E11.9 Type 2 diabetes mellitus without complications; G30.9 Alzheimer's disease, unspecified; F02.81 Dementia in other diseases classified elsewhere, unspecified severity, with behavioral disturbance; E03.9 Hypothyroidism, unspecified; R03.0 Elevated blood-pressure reading, without diagnosis of hypertension; E66.9 Obesity, unspecified; Z79.899 Other long term (current) drug therapy; Z68.32 Body mass index [BMI] 32.0-32.9, adult
CPT/HCPCS: 36415; 71045; 80053; 80061; 82550; 82553; 83036; 83605; 83735; 83880; 84443; 84484; 84550; 85025; 85379; 85610; 85730; 93005; 93010; 96374; 96375; 99217; 99219; 99285-25; A9270-GY; J1650; J3490